=== PATIENT | female | born 1980 | race African-American/Black ===

== ENCOUNTER 2020-12-26 13:14 | Emergency (ER) | payer OTHER ==
[~2020-12-26] VITALS: Ht 172.7 cm; Wt 78.5 kg
[2020-12-26] MEDS ORDERED: IRON (13:40)
[2020-12-26] MEDS ORDERED: BACITRACIN ZINC OINT UDPKT TOP ONE (15:15)
[2020-12-26] MEDS ORDERED: LIDOCAINE HCL/PF 1% 10 MG/ML 5ML VIAL INFIL ONE (15:15)
[2020-12-26] MEDS ORDERED: IBUPROFEN 600MG TABLET PO ONE (15:15)
[2020-12-26] MEDS ORDERED: TETANUS, DIPHTHERIA, PERTUSSIS VAC/PF 0.5ML (>10YR OLD) IM ONE (15:15)
[2020-12-26] MEDS ORDERED: IBUP-2029 MT (17:36)
[2020-12-26 18:30] VITALS: BP 129/75
== END 2020-12-26 18:32 | disposition home or self-care (01) ==
LOC: ER 13:34
DX: S61.215A Laceration without foreign body of left ring finger without damage to nail, initial encounter (principal); W45.8XXA Other foreign body or object entering through skin, initial encounter; Y93.89 Activity, other specified; Y92.89 Other specified places as the place of occurrence of the external cause; Y99.8 Other external cause status
CPT/HCPCS: 12002; 73120; 90471; 90715; 99283; J3490